=== PATIENT | female | born 1980 | race Caucasian/White ===

== ENCOUNTER 2016-06-30 10:36 | Emergency (ER) | payer MEDICAID ==
[~2016-06-30] VITALS: Ht 167.6 cm; Wt 87.2 kg
[~2016-06-30 10:36] MED LIST: HYDROCODONE-HOMATROP PO
[2016-06-30 13:13] LABS: BASOPHIL % 0.4 % (0-2); PLATELET COUNT 179 x10^3mcL (130-400); RED CELL DISTRIBUTION WIDTH 14.2 % (11.5-14.5)
[2016-06-30 13:33] LABS: ALBUMIN 3.6 g/dL (3.4-5.0); ALKALINE PHOSPHATASE 64 U/L (46-116); ALT/SGPT 22 U/L (14-59); AMYLASE 65 U/L (25-115); AST/SGOT 24 U/L (15-37); BILIRUBIN TOTAL 0.5 mg/dL (0.20-1.00); CALCIUM 8.6 mg/dL (8.5-10.1); CARBON DIOXIDE 26.9 mmol/L (21-32); CHLORIDE SERUM 105 mmol/L (98-107); CREATININE SERUM 0.9 mg/dL (0.6-1.0); GFR1 > 60 mL/min; GLUCOSE SERUM 86 mg/dL (74-106); LIPASE 128 IU/L (73-393); POTASSIUM SERUM 3.6 mmol/L (3.5-5.1); SODIUM SERUM 140 mmol/L (136-145)
[2016-06-30 15:40] VITALS: BP 127/79
== END 2016-06-30 15:40 | disposition home or self-care (01) ==
LOC: ED 10:36
DX: R10.9 Unspecified abdominal pain (principal); R51 Headache
CPT/HCPCS: 83880; C9113; J7030

== ENCOUNTER 2017-03-23 08:07 | Emergency (ER) | payer BC ==
[~2017-03-23] VITALS: Ht 167.6 cm; Wt 85.3 kg
[2017-03-23 08:18] VITALS: BP 130/83; Ht 167.6 cm; Wt 85.3 kg
== END 2017-03-23 09:55 | disposition home or self-care (01) ==
LOC: ED 08:07
DX: J40 Bronchitis, not specified as acute or chronic (principal); E03.9 Hypothyroidism, unspecified; Z86.2 Personal history of diseases of the blood and blood-forming organs and certain disorders involving the immune mechanism
CPT/HCPCS: J7613

== ENCOUNTER 2017-06-09 14:29 | Emergency (ER) | payer BC ==
[~2017-06-09] VITALS: Ht 167.6 cm; Wt 83.9 kg
[2017-06-09 14:34] VITALS: Ht 167.6 cm; Wt 83.9 kg
[2017-06-09 15:23] LABS: microscopic required? NO
[2017-06-09 15:46] LABS: CALCIUM 8.6 mg/dL (8.5-10.1); CARBON DIOXIDE 22.6 mmol/L (21-32); CHLORIDE SERUM 105 mmol/L (98-107); CREATININE SERUM 0.9 mg/dL (0.6-1.0); GFR1 > 60 mL/min; GLUCOSE SERUM 110 mg/dL (74-106); POTASSIUM SERUM 3.4 mmol/L (3.5-5.1); SODIUM SERUM 136 mmol/L (136-145)
[2017-06-09 15:46] LABS: UA SPECIFIC GRAVITY >=1.030 (1.005-1.035); urine erythrocyte NEGATIVE (NEGATIVE)
[2017-06-09 15:47] LABS: BASOPHIL % 0.7 % (0-2); PLATELET COUNT 246 x10^3mcL (130-400)
[2017-06-09 15:53] LABS: RED CELL DISTRIBUTION WIDTH 17.5 % (11.5-14.5)
[2017-06-09 15:57] LABS: ALBUMIN 3.5 g/dL (3.4-5.0); ALKALINE PHOSPHATASE 43 U/L (46-116); ALT/SGPT 20 U/L (14-59); AST/SGOT 18 U/L (15-37); BILIRUBIN TOTAL 0.2 mg/dL (0.20-1.00); LIPASE 138 IU/L (73-393); TOTAL PROTEIN, SERUM 6.8 g/dL (6.4-8.2)
[2017-06-09 17:26] VITALS: BP 122/71
== END 2017-06-09 17:26 | disposition home or self-care (01) ==
LOC: ED 14:29
PROVIDERS: Emergency Medicine
DX: K29.70 Gastritis, unspecified, without bleeding (principal); D50.9 Iron deficiency anemia, unspecified; E03.9 Hypothyroidism, unspecified; Z90.89 Acquired absence of other organs
CPT/HCPCS: J2270; J2405; J7030

== ENCOUNTER 2018-06-15 01:00 | Emergency (ER) | payer BC ==
[~2018-06-15] VITALS: Ht 167.6 cm; Wt 87.5 kg
[2018-06-15 01:06] VITALS: Ht 167.6 cm; Wt 87.5 kg
[2018-06-15 01:49] LABS: BASOPHIL % 0.9 % (0-2); PLATELET COUNT 183 x10^3mcL (130-400)
[2018-06-15 01:52] LABS: RED CELL DISTRIBUTION WIDTH 26.2 % (11.5-14.5)
[2018-06-15 02:16] LABS: ovalocyte/elliptocyte 1+; rbc morphology (normal/abnorm) ABNORMAL (NORMAL)
[2018-06-15 04:16] LABS: microscopic required? YES; urine erythrocyte 3+ (NEGATIVE)
[2018-06-15 05:38] VITALS: BP 136/78
== END 2018-06-15 05:38 | disposition home or self-care (01) ==
LOC: ED 01:00
PROVIDERS: Emergency Medicine
DX: O20.0 Threatened abortion (principal); E03.9 Hypothyroidism, unspecified; Z90.89 Acquired absence of other organs; Z90.49 Acquired absence of other specified parts of digestive tract; Z86.2 Personal history of diseases of the blood and blood-forming organs and certain disorders involving the immune mechanism
CPT/HCPCS: 36415; J1460

== ENCOUNTER 2018-07-02 07:04 | Inpatient (IN) | payer BC ==
[~2018-07-02] VITALS: Ht 167.6 cm; Wt 85.5 kg
[2018-07-02 07:12] VITALS: Ht 167.6 cm; Wt 85.5 kg
--- NOTE | 2018-07-02 07:53 | NUR ---
PT IN [facility]
--- NOTE | 2018-07-02 08:00 | NUR ---
PT HERE FOR CONCERN OF NEEDING D&C. STS SHE IS SCHEDULED FOR TODAY BECAUSE SHE HAD AN US THAT SHOWED NO HR OR MOVEMENT AND HER DOCTOR IS IN [place] BUT WANTS HER TO BE SOMEWHERE CLOSER TO DO PROCEDURE. DENIES PAIN OR DISCOMFORT AT THIS TIME
[2018-07-02 08:27] LABS: BASOPHIL % 0.5 % (0-2); PLATELET COUNT 170 x10^3mcL (130-400)
[2018-07-02 08:28] LABS: RED CELL DISTRIBUTION WIDTH 24.8 % (11.5-14.5)
[2018-07-02] MEDS ORDERED: LEVOTHYROXIN0.175 MG PO (09:05)
--- NOTE | 2018-07-02 09:06 | NUR ---
RETURNED FROM XR.
--- NOTE | 2018-07-02 10:22 | NUR ---
REPORT GIVEN TO SANJAY OR NURSE
--- NOTE | 2018-07-02 10:46 | NUR ---
DR BAZZI TEXTED REGARDING PT REQUESTING RHOGAM INJ POST D&C PROCEDURE IS COMPLETED
--- NOTE | 2018-07-02 10:50 | NUR ---
INFORMED SANJAY OR NURSE REGARDING PT'S NEED FOR RHOGAM INJ POST D&C PROCEDURE
[2018-07-02 11:44] LABS: T3 TOTAL 1.86 ng/mL
[2018-07-02 11:46] LABS: MAGNESIUM 1.7 mg/dL (1.8-2.4); PHOSPHOROUS 3.9 mg/dL (2.5-4.9)
[2018-07-02 13:14] LABS: FREE T4 1.14 ng/dL (0.76-1.46)
[2018-07-02 13:15] LABS: T4(THYROXINE) 14.4 ug/dL (4.7-13.3)
--- NOTE | 2018-07-02 13:20 | NUR ---
PT ADMITTED FOR O/R S/P D&C. RECEIVED REPORT FROM [facility]. PT HAD D/C WITH MONITORED ANTHESIA CARE. ANCEF 1 GM GIVEN AND 2MG DILAUDID. EBL 100ML. FLUIDS LR 1000ML RECEIVED. PT ARRIVED ON A GURNEY ACCOMPANIED BY . VS: 97.1F, 60, 17, 103/60, 97% R/A. AAOX4. RESP EVEN AND UNLABORED. NORMAL S1S2. ABDOMEN SOFT, ROUND, TENDER UPON PALPATION. SKIN CDI. PERIPHERAL PULSES PALPABLE. IV CATH TO RAC 20G. PT STATES SHE FEELS NAUSEATED. ZOFRAN WILL BE GIVEN. PT ORIENTED TO ROOM AND CALL LIGHT. [facility] GAVE PT FOLLOW UP ORDERS FROM DR. PERDOMO.
--- NOTE | 2018-07-02 13:20 | NUR ---
PT ADMITTED FOR O/R S/P D&C. RECEIVED REPORT FROM [place]. PT HAD D/C WITH MONITORED ANTHESIA CARE. ANCEF 1 GM GIVEN AND 2MG DILAUDID. EBL 100ML. FLUIDS LR 1000ML RECEIVED. PT ARRIVED ON A GURNEY ACCOMPANIED BY . AAOX4. RESP EVEN AND UNLABORED. NORMAL S1S2. ABDOMEN SOFT, ROUND, TENDER UPON PALPATION. SKIN CDI. PERIPHERAL PULSES PALPABLE. IV CATH TO RAC 20G. PT STATES SHE FEELS NAUSEATED. ZOFRAN WILL BE GIVEN. PT ORIENTED TO ROOM AND CALL LIGHT. [facility] GAVE PT FOLLOW UP ORDERS FROM DR. PERDOMO.
[2018-07-02 13:31] VITALS: BP 103/60
--- NOTE | 2018-07-02 13:34 | NUR ---
RECEIVED PT FROM OR VIA [facility]. ORIENTED PT TO ROOM AND SURROUNDINGS. IV NOTED TO RAC PATENT AND INTACT. INSTRUCTED PT ON THE USE OF CALL LIGHT FOR ASSISTANCE. ENDORSED PT TO PRIMARY NURSE JEWE[place]
--- NOTE | 2018-07-02 13:36 | NUR ---
ZOFRAN 4 MG IVP GIVEN FOR NAUSEA. PT DENIES PAIN. RESP EVEN AND UNLABORED. PT NOTED WITH SCANT BRIGHT RED BLOOD IN FEMININE [place]. WILL CONTINUE TO MONITOR.
--- NOTE | 2018-07-02 14:15 | NUR ---
FLU VACCINE GIVEN IN R DELTOID. SITE WNL. PT HAS N/V AND DIZZINESS. ASSISTED TO LAY ON SIDE. DENIES PAIN. WILL CONTINUE TO MONITOR.
[2018-07-02 15:27] VITALS: BP 119/67
[2018-07-02 15:42] VITALS: BP 107/72
--- NOTE | 2018-07-02 17:54 | NUR ---
TYLENOL 650MG PO GIVEN FOR PAIN THROBBING ABDOMINAL PAIN 07/13. FLUIDS ENCOURAGED. DUE MED GIVEN. CALL LIGHT WITHIN REACH. PT SPOKE WITH DR. DAS. DR. DAS EDUCATED PT THAT SHE CAN FOLLOW UP WITH DR. CLIFFORD ON 07/03/18. PT MAY COME TO HIS OFFICE AND RECEIVE THE RHOGAM SHOT. PT VERBALIZED UNDERSTANDING. CALL LIGHT WITHIN REACH.
--- NOTE | 2018-07-02 18:51 | NUR ---
PT D/C TO HOME IN NO DISTRESS. DISCHARGE INSTRUCTIONS REVIEWED. ALL FORMS SIGNED. IV TO RAC REMOVED INTACT. SITE WNL. COVERED WITH GAUZE AND BANDAID. VS: 97.6F, 58, 16, 107/72, 97% ON R/A. PT DENIES PAIN AT TIME OF DISCHARGE. ALL BELONGINGS TAKEN HOME.
== END 2018-07-02 18:57 | disposition home or self-care (01) | DRG 770 ==
LOC: ED 07:04 → MU 09:22
PROVIDERS: Emergency Medicine; Obstetrics & Gynecology; ADMIT General Practice
PROC: 10D17ZZ Extraction of Products of Conception, Retained, Via Natural or Artificial Opening (ICD-10-PCS; principal; 2018-07-02 11:30)
DX: O02.1 Missed abortion (principal); E03.9 Hypothyroidism, unspecified; D50.9 Iron deficiency anemia, unspecified; E83.42 Hypomagnesemia; Z90.49 Acquired absence of other specified parts of digestive tract; Z98.891 History of uterine scar from previous surgery; Z23 Encounter for immunization
CPT/HCPCS: 84439; 90658; C1758; J1170; J2405; J3010; J7030